=== PATIENT | male | born 1960 | race Caucasian/White ===

== ENCOUNTER 2022-12-24 13:33 | Inpatient (IN) ==
--- NOTE | 2022-12-24 13:44 | ED Triage Note ---
Date of Service December 24, 2022 History of Present Illness This patient was briefly evaluated while in triage. An abbreviated physical exam was performed. This patient is a 62-year-old Male who presents to the ED for evaluation of weakness of the patient's right fourth and fifth fingers. This began earlier th is morning around 10 AM. The patient was seen at [facility] and referred to the emergency department to have a CT scan done to make sure that he does not have a stroke. The patient was previously seen by [facility] orthopedics back last fall with x-rays of the wrist. Physical Exam CONSTITUTIONAL: Healthy and well nourished. Patient does not appear in any acute distress. HEENT: Pupils equal, round and reactive. MUSCULOSKELETAL: Examination shows a flexion of the right fourth and fifth fingers. The fingers are sensory intact. The patient has edema over the over the ulnar styloid and dorsal hand region. INTEGUMENTARY: No rash or other significant dermatologic conditions noted. HEMATOLOGIC: No ecchymosis or petechiae. PSYCHIATRIC: Positive affect. NEUROLOGIC: Cranial nerves II-XII grossly intact. No focal neurologic deficits noted. Right hand and fingers are sensory intact Initial orders for labs and / or imaging were placed and patient was placed in the waiting area until a bed is available. Please see further documentation for the full ED course. MDM / Impression Impression Impression: Right hand weakness, Elevated troponin, Acute electrocardiogram changes, Hypomagnesemia
--- NOTE | 2022-12-24 13:55 | Emergency Department Note ---
ED Provider Note History of Present Illness Chief Complaint: Wrist Pain Stated Complaint: ct scan Time Seen by Provider: 12/24/22 13:50 This is a 62-year-old male with a history of diabetes, hypertension, high cholesterol, who was referred to the emergency department by orthopedic surgery to rule out a stroke secondary to developing weakness in his right fourth and fifth fingers earlier today at about 9 or 10:00 in the morning. Patient describes his deficit as his fourth and fifth fingers are drooped down. He is unable to fully straighten the fourth or fifth fingers. Fingers 1 2 and 3 are unaffected. He is able to flex the fingers fingers 4 and 5 to some extent but it also seems decreased. This is not accompanied by any numbness or tingling in his fingers. He has not had a headache, facial droop, confusion, slurred speec h, weakness anywhere else, or paresthesias or numbness anywhere else. He denies any chest pain, palpitations, or shortness of breath. He contacted his primary care provider who was able to secure an urgent orthopedic appointment through [employer] and he was seen by them today. They referred him to the emergency department to rule out a stroke. Patient states that he has been dealing with pain and swelling over the ulnar aspect of his wrist over the past 8 months. He was seen for this in the past, and it was felt that this may be gout, pseudogout, or arthritis. He has had intermittent pain and swelling in this region since. Within the past few days he notes a new lump adjacent to his ongoing swelling which he believes might be a ganglion cyst. The swelling slightly improved over the last 2 days but the cystic structure is still there. Patient has had ongoing pain in the wrist, but has not had any droop or neurologic deficits like he has today. When he woke up today, he did not have any weakness in the fingers. Past Med/Surg History Medical History (Updated 12/24/22 @ 20:12 by Manisha Dubose PA-C) Diabetes Gout HLD (hyperlipidemia) Hypertension Obesity (BMI 30-39.9) Surgical History (Updated 12/24/22 @ 20:11 by Manisha Dubose PA-C) Hx of colonoscopy Family History (Updated 12/24/22 @ 18:28 by Manisha Dubose PA-C) Other Heart disease Hypertension Stroke Social History Smoking Status: Never smoker Feels Safe at Home: Yes Physical Exam Vital Signs Vital Signs - 24 hr 12/24/22 13:39 12/24/22 17:03 12/24/22 17:31 Temperature 36.8 C Temperature Source Temporal Artery Scan Pulse Rate 91 H 61 Pulse Rate [Apical] 66 Respiratory Rate 18 16 Respiratory Effort / Characteristics Non-Labored Non-Labored Respiratory Depth Normal Normal Blood Pressure 143/85 H Blood Pressure [Right Arm] 130/76 Blood Pressure Mean 104 Blood Pressure Mean [Right Arm] 94 Blood Pressure Position Sitting Pulse Oximetry 94 96 Oxygen Delivery Method Room Air Room Air Sepsis Recent Fever Within 48 Hours No Sepsis New/Unexplained Change in Mental Status N/A Sepsis Action Taken by Nursing No Action Required 12/24/22 16:51 12/24/22 18:00 12/24/22 18:10 Temperature Temperature Source Pulse Rate 71 72 Pulse Rate [Apical] 64 Respiratory Rate 22 17 18 Respiratory Effort / Characteristics Non-Labored Spontaneous Respiratory Depth Normal Blood Pressure 144/80 H 133/86 Blood Pressure [Right Arm] 133/86 Blood Pressure Mean 101 101 Blood Pressure Mean [Right Arm] 101 Blood Pressure Position Pulse Oximetry 94 94 95 Oxygen Delivery Method Room Air Room Air Room Air Sepsis Recent Fever Within 48 Hours Sepsis New/Unexplained Change in Mental Status Sepsis Action Taken by Nursing CONSTITUTIONAL: Well developed, well nourished, in no acute distress. HEAD: Normocephalic, atraumatic. EYES: PERRL, conjunctivae normal, extraocular muscles intact. ENMT: External ears normal. Nose with normal external appearance, no congestion. Oral mucous membranes moist. Oropharynx normal. Tongue midline, no fasciculations. NECK: Full active range of motion. RESPIRATORY: Breathing unlabored and symmetric. Lungs clear to auscultation bilaterally. No wheeze, rales, or rhonchi. CARDIOVASCULAR: Regular rate and rhythm. No murmurs, rubs, or gallops. Radial pulses 2+ bilaterally. MUSCULOSKELETAL: Right upper extremity: Shoulder and elbow with full range of motion. Wrist extension is slightly limited. There is an obvious droop/weakness/flaccidness to the fifth and fourth fingers beginning at about the MCP joint. Patient able to slightly flex these fingers, but is unable to extend them. He has full range of motion in the thumb, index, and middle f ingers. All of these fingers are warm and well-perfused. Patient unable to fully supinate the wrist. Perform straight leg raises bilaterally. SKIN: Rigby, warm, dry. Capillary refill less than 2 seconds in all fingers NEUROLOGIC: Awake, alert, oriented. Cranial nerves II through XII intact. The re is obvious weakness in fingers 4 and 5 on the right hand. Coordination is intact. No sensory deficits in bilateral fingers to light touch. Patient reports slight subjective decreased sensation to sharp dull differentiation in right fourth and fifth fingers. No pronator drift. PSYCHIATRIC: Appropriate. Normal affect Course Administered Medications Discontinued Medications Aspirin (Aspirin Chew 324 Mg) 324 mg PO NOW STA Stop: 12/24/22 17:09 Last Admin: 12/24/22 17:14 Dose: 324 mg Documented By: CHIP Magnesium Sulfate/Dextrose (Magnesium Sulfate / D5w) 1 gm in 100 mls @ 100 mls/hr IV Q1H MK Stop: 12/24/22 18:41 Last Infusion: 12/24/22 19:14 Dose: 0 mls/hr Documented By: Admin: 12/24/22 18:09 Dose: 100 mls/hr Documented By: Infusion: 12/24/22 18:04 Dose: 0 mls/hr Documented By: Admin: 12/24/22 17:01 Dose: 100 mls/hr Documented By: MARGARITO Sodium Chloride (Nss) 500 mls @ 999 mls/hr IV .Q31M ONE Stop: 12/24/22 18:05 Last Infusion: 12/24/22 18:44 Dose: 0 mls/hr Documented By: Admin: 12/24/22 18:10 Dose: 999 mls/hr Documented By: MARGARITO Ioversol (Optiray 320 500ml) 111 ml IV ONCE ONE Stop: 12/24/22 16:14 Last Admin: 12/24/22 16:13 Dose: 111 ml Documented By: CARY Medical Decision Making Differential Diagnosis Peripheral nerve palsy, ganglion cyst, tendon laceration, gout, pseudogout, CVA, dissection, DC, pulmonary embolism, neuropathy, demyelinating disorder, cardiac arrhythmia, among other pathology Medical Records Attestation: I reviewed the patient's medical records. (Reviewed prior [facility] cardiology notes and prior [facility] ECGs. Stress echo 2020 unchanged from 2019. There is a diagnosis of a mildly enlarged ascending aorta, what was visualized on the CT of the neck was normal.) Laboratory Data 12/24/22 14:51 12/24/22 14:51 Lab Results 12/24/22 12/24/22 12/24/22 Range/Units 14:51 14:51 14:51 WBC 9.28 (4.8-10.8) K/ul RBC 4.71 (4.70-6.10) M/uL Hgb 14.3 (14.0-18.0) g/dl Hct 41.9 L (42.0-52.0) % MCV 89.0 (80.0-100.0) fL MCH 30.4 (25.0-34.0) pg MCHC 34.1 (32.0-36.0) g/dL RDW Std Deviation 43.5 (36.4-46.3) fL RDW Coeff of Yan[place] 13.3 (11.5-14.5) % Plt Count 201 (130-400) K/uL MPV 9.8 (9.4-12.4) fL Immature Gran % (Auto) 0.2 % Neut % (Auto) 43.9 % Lymph % (Auto) 21.9 % [place] % (Auto) 8.3 % Eos % (Auto) 25.2 % Baso % (Auto) 0.5 % Neut # (Auto) 4.07 (1.40-6.50) K/uL Lymph # (Auto) 2.03 (1.2-3.4) K/uL [place] # (Auto) 0.77 H (0.11-0.59) K/uL Eos # (Auto) 2.34 H (0-0.50) K/uL Baso # (Auto) 0.05 (0-0.2) K/uL Immature Gran # (Auto) 0.02 (0.01-0.20) K/uL PT 11.2 (9.0-12.0) Seconds INR 1.0 (0.9-1.1) APTT 29.5 (21.0-31.0) Seconds PTT Ratio 1.0 Sodium 139 (136-145) mmol/L Potassium 3.9 (3.5-5.1) mmol/L Chloride 102 (98-107) mmol/L Carbon Dioxide 28 (21-32) mmol/L Anion Gap 9 (3-11) BUN 16 (6-23) mg/dl Creatinine 0.90 (0.6-1.4) mg/dl Est Cr Clr Drug Dosing 109.6 ml/min Est GFR ( Amer) 104.2 ml/min Est GFR (Non-Af Amer) 89.9 ml/min BUN/Creatinine Ratio 17.8 (10-20) Glucose 155 H (70-99(Fasting)) mg/dl Calcium 9.4 (8.6-10.3) mg/dl Magnesium 1.5 L (1.7-2.4) mg/dl Total Bilirubin 0.6 (0.2-1.0) mg/dl AST 22 (13-39) U/L ALT 15 (7-52) U/L Alkaline Phosphatase 69 (34-104) U/L Troponin I High Sens 160.0 H* (0-20) pg/ml Total Protein 6.8 (6.0-8.3) gm/dl Albumin 4.2 (3.4-5.0) gm/dl Globulin 2.6 (2.5-4.0) gm/dl Albumin/Globulin Ratio 1.6 (0.9-2) SARS-CoV-2, RNA, NAAT (NEGATIVE) 12/24/22 12/24/22 Range/Units 16:52 17:16 WBC (4.8-10.8) K/ul RBC (4.70-6.10) M/uL Hgb (14.0-18.0) g/dl Hct (42.0-52.0) % MCV (80.0-100.0) fL MCH (25.0-34.0) pg MCHC (32.0-36.0) g/dL RDW Std Deviation (36.4-46.3) fL RDW Coeff of Yanique (11.5-14.5) % Plt Count (130-400) K/uL MPV (9.4-12.4) fL Immature Gran % (Auto) % Neut % (Auto) % Lymph % (Auto) % [place] % (Auto) % Eos % (Auto) % Baso % (Auto) % Neut # (Auto) (1.40-6.50) K/uL Lymph # (Auto) (1.2-3.4) K/uL [place] # (Auto) (0.11-0.59) K/uL Eos # (Auto) (0-0.50) K/uL Baso # (Auto) (0-0.2) K/uL Immature Gran # (Auto) (0.01-0.20) K/uL PT (9.0-12.0) Seconds INR (0.9-1.1) APTT (21.0-31.0) Seconds PTT Ratio Sodium (136-145) mmol/L Potassium (3.5-5.1) mmol/L Chloride (98-107) mmol/L Carbon Dioxide (21-32) mmol/L Anion Gap (3-11) BUN (6-23) mg/dl Creatinine (0.6-1.4) mg/dl Est Cr Clr Drug Dosing ml/min Est GFR ( Amer) ml/min Est GFR (Non-Af Amer) ml/min BUN/Creatinine Ratio (10-20) Glucose (70-99(Fasting)) mg/dl Calcium (8.6-10.3) mg/dl Magnesium (1.7-2.4) mg/dl Total Bilirubin (0.2-1.0) mg/dl AST (13-39) U/L ALT (7-52) U/L Alkaline Phosphatase (34-104) U/L Troponin I High Sens 180.7 H* (0-20) pg/ml Total Protein (6.0-8.3) gm/dl Albumin (3.4-5.0) gm/dl Globulin (2.5-4.0) gm/dl Albumin/Globulin Ratio (0.9-2) SARS-CoV-2, RNA, NAAT NEGATIVE (NEGATIVE) Imaging Data Radiologist's Impression: Head CTA 12/24/22 14:22 CT ANGIOGRAM OF THE BRAIN COMBO; CT ANGIOGRAM OF THE NECK CLINICAL HISTORY: Right upper extremity weakness. COMPARISON STUDY: No priors. TECHNIQUE: Unenhanced axial CT scan of the brain is performed. Subsequently, following the IV administration of 100 of Optiray 320, CT angiogram of the head and neck was performed from the aortic arch to the vertex. Images are reviewed in the axial, sagittal, and coronal planes. 3-D MIPS images are created and assessed. IV contrast was administered without complication. All measurements were calculated based on NASCET criteria. A dose lowering technique was utilized adhering to the principles of ALARA. CT DOSE: 1203.63 mGy.cm FINDINGS: Brain parenchyma: The brain parenchyma is normal in appearance. There is no hemorrhage, mass effect, or evidence of acute territorial ischemia by CT criteria. There is no evidence of enhancing mass lesion on the angiogram phase images. The ventricles, sulci, and cisterns are normal in configuration. Villalba- white matter differentiation is preserved. No extra-axial fluid collection is seen. Thoracic aorta: Visualized portions of the thoracic aorta are normal in caliber. The aortic arch demonstrates standard 3-vessel anatomy. Right carotid arterial system: The right common carotid artery is widely patent, as are the right internal and external carotid arteries. Left carotid arterial system: The left common carotid artery is widely patent, as is the left internal and external carotid arteries. Calcified plaque is noted in the carotid bulb. Vertebral arteries: The vertebral arteries are widely patent bilaterally and codominant. Subclavian arteries: Widely patent bilaterally. Intracranial vasculature: There is atherosclerotic calcification of the cavernous carotid and vertebral arteries. The internal carotid arteries are patent at the skull base, as are the anterior and middle cerebral arteries bi laterally. The vertebrobasilar system and posterior cerebral arteries are widely patent. The vertebral arteries are codominant. There is a large right posterior communicating artery. There is no aneurysm, high-grade stenosis, or focal vessel cut off seen throughout the intracranial circulation. Jugular veins: Patent bilaterally. Dural sinuses: Patent. Lung apices: Partially visualized upper lobe lung parenchyma appears clear. Soft tissues: The visualized pharyngeal soft tissues are normal in appearance noting angiographic phase technique. The oropharyngeal airway appears widely patent. The salivary and thyroid glands are normal in appearance. No cervical lymphadenopathy is seen. Skeletal structures: The calvarium appears intact. The cervical spine is maintained noting mild spondylosis. Orbits: The bony orbits are intact. Orbital contents are normal as visualized. Sinuses and mastoids: There is trace mucosal thickening within the left maxillary antrum. The remaining paranasal sinuses are clear. The mastoid air cells are well pneumatized. IMPRESSION: 1. There is no hemorrhage, mass effect, or evidence of acute territorial ischemia by CT criteria. 2. Unremarkable CT angiogram of the brain. 3. Unremarkable CT angiogram of the neck. ACT 112: Negative or not required by law. Electronically signed by: Jesse Campbell M.D. 12/24/2022 4:37 PM Neck CTA 12/24/22 14:22 CT ANGIOGRAM OF THE BRAIN COMBO; CT ANGIOGRAM OF THE NECK CLINICAL HISTORY: Right upper extremity weakness. COMPARISON STUDY: No priors. TECHNIQUE: Unenhanced axial CT scan of the brain is performed. Subsequently, following the IV administration of 100 of Optiray 320, CT angiogram of the head and neck was performed from the aortic arch to the vertex. Images are reviewed in the axial, sagittal, and coronal planes. 3-D MIPS images are created and assessed. IV contrast was administered without complication. All measurements were calculated based on NASCET criteria. A dose lowering technique was utilized adhering to the principles of ALARA. CT DOSE: 1203.63 mGy.cm FINDINGS: Brain parenchyma: The brain parenchyma is normal in appearance. There is no hemorrhage, mass effect, or evidence of acute territorial ischemia by CT criteria. There is no evidence of enhancing mass lesion on the angiogram phase images. The ventricles, sulci, and cisterns are normal in configuration. Villalba- white matter differentiation is preserved. No extra-axial fluid collection is seen. Thoracic aorta: Visualized portions of the thoracic aorta are normal in caliber. The aortic arch demonstrates standard 3-vessel anatomy. Right carotid arterial system: The right common carotid artery is widely patent, as are the right internal and external carotid arteries. Left carotid arterial system: The left common carotid artery is widely patent, as is the left internal and external carotid arteries. Calcified plaque is noted in the carotid bulb. Vertebral arteries: The vertebral arteries are widely patent bilaterally and codominant. Subclavian arteries: Widely patent bilaterally. Intracranial vasculature: There is atherosclerotic calcification of the ca vernous carotid and vertebral arteries. The internal carotid arteries are patent at the skull base, as are the anterior and middle cerebral arteries bilaterally. The vertebrobasilar system and posterior cerebral arteries are widely patent. The vertebral arteries are codominant. There is a large right posterior communicating artery. There is no aneurysm, high-grade stenosis, or focal vessel cut off seen throughout the intracranial circulation. Jugular veins: Patent bilaterally. Dural sinuses: Patent. Lung apices: Partially visualized upper lobe lung parenchyma appears clear. Soft tissues: The visualized pharyngeal soft tissues are normal in appearance noting angiographic phase technique. The oropharyngeal airway appears widely patent. The salivary and thyroid glands are normal in appearance. No cervical lymphadenopathy is seen. Skeletal structures: The calvarium appears intact. The cervical spine is maintained noting mild spondylosis. Orbits: The bony orbits are intact. Orbital contents are normal as visualized. Sinuses and mastoids: There is trace mucosal thickening within the left maxillary antrum. The remaining paranasal sinuses are clear. The mastoid air cells are well pneumatized. IMPRESSION: 1. There is no hemorrhage, mass effect, or evidence of acute territorial ischemia by CT criteria. 2. Unremarkable CT angiogram of the brain. 3. Unremarkable CT angiogram of the neck. ACT 112: Negative or not required by law. Electronically signed by: Jesse Campbell M.D. 12/24/2022 4:37 PM ECG Data Attestation: I personally reviewed and interpreted this ECG as follows: Additional Comments: EKG #1: Sinus rhythm in lead I with significant artifact in remaining leads. TX interval prolonged at 206. EKG #2: Sinus rhythm with a rate of 64. TX interval prolonged at 246. Left axis deviation. Question Q waves in the inferior leads. No acute ST elevation. Compared to prior ECG from [facility] in August 05, 2022, there are slight ups trokes in the inferior leads so Q waves may be new. No additional significant changes were identified. MDM Narrative [id number] 62-year-old male was referred to the emergency department by his orthopedic surgeon to rule out a stroke secondary to weakness in his right fourth and fifth fingers that occurred at about 9 or 10:00 this morning. He has been dealing with ongoing swelling and pain in the ulnar aspect of his right wrist over the past 8 months, and recently developed what he believes to be a ganglion cyst in this vicinity as well. On exam, he does have flaccidness to the fourth and fifth digits at the MCP joint, and is unable to fully extend these fingers. He has slight ability to flex the fingers. Minimal subjective decreased sensation to sharp differentiation. Remainder of examination is unremarkable including full ne urologic exam. Case discussed with ED attending Dr. Franco. This does not warrant a stroke alert, but we we will work the patient up for a CVA though this does appear to be more of a peripheral nerve palsy which I suspect to be related to patient's ongoing swelling and tenderness about the ulnar wrist. Patient declined x-rays of the wrist stating that he would prefer to have this done by orthopedics when he follows up with them. Labs were obtained showing a positive troponin at 160. No leukocytosis or anemia. Coags are normal. Magnesium slightly low at 1.5, repleted IV, glucose slightly elevated 155, known diabetic. No transaminitis. Renal function is normal. An order was placed for continuous cardiac monitoring demonstrating a sinus rhythm with a heart rate in the 80s. EKG: Initial was nearly unreadable although does appear to be a sinus rhythm. Repeat ECG demonstrates no acute ST elevation, though there is a persistent prolonged TX interval at 246. Questionable Q waves in the inferior leads. Compared to prior ECG, this is slightly more prominent though not significantly changed. CTA head and neck is negative for any acute process. Reevaluated the patient at bedside. Confirmed he was not experiencing any chest pain or shortness of breath, and has not experienced any of this over the past few days. No prior troponins were identified in the patient's records from [facility]. Case rediscussed with ED attending Dr. Franco and we will treat the patient with 324 mg aspirin. Heart score 6 points. We were inclined to obtain a CTA of the chest to evaluate for PE however when I discussed the case with GANESH Castellanos with [facility] hospitalist group at time of admission, she did not feel that this test was indicated at this time, so we will defer to their inpatient management. Patient did not have any acute neurologic changes, remained hemodynamically stable. Patient will be admitted for serial troponins, further cardiac work-up, and further evaluation related to the hand weakness. At time of admission, his repeat troponin had increased to 180.7. Melani ANDERSEN notified and aware. Impression Right hand weakness, Elevated troponin, Acute electrocardiogram changes, Hypomagnesemia Discharge Plan Visit Data Chief Complaint: Wrist Pain Stated Complaint: ct scan ED Provider: Burton Franco ED Midlevel Provider: Wade Ugarte Discharge Problem: Right hand weakness, Elevated troponin, Acute electrocardiogram changes, Hypomagnesemia Patient Disposition: Admitted As Inpatient Forms Stand Alone Forms: My [facility] Referrals Referrals: PCP,NO [Physician] - Addendum December 24, 2022 20:45 I was consulted by the Advanced Practice Provider.I performed a substantive portion of the visit.This includes aspects of the HPI, MDM, diagnostic interpretations, and disposition/plan. I discussed the case with the JANETT and agree with the findings and plan as documented in JANETT Torito's note.
[2022-12-24 15:39] LABS: Basophils # (auto) 0.05 K/uL (0-0.2); Basophils % (auto) 0.5 %; Eosinophils # (auto) 2.34 K/uL (0-0.50); Eosinophils % (auto) 25.2 %; Hematocrit (blood only) 41.9 % (42.0-52.0); Hemoglobin 14.3 g/dl (14.0-18.0); Immature Granulocytes # (auto) 0.02 K/uL (0.01-0.20); Immature Granulocytes % (auto) 0.2 %; Lymphocytes # (auto) 2.03 K/uL (1.2-3.4); Lymphocytes % (auto) 21.9 %; Mean Corpuscular Hemoglobin 30.4 pg (25.0-34.0); Mean Corpuscular Hgb Conc 34.1 g/dL (32.0-36.0); Mean Platelet Volume 9.8 fL (9.4-12.4); Monocytes # (auto) 0.77 K/uL (0.11-0.59); Monocytes % (auto) 8.3 %; Neutrophils # (auto) 4.07 K/uL (1.40-6.50); Neutrophils % (auto) 43.9 %; Platelet Count 201 K/uL (130-400); RDW Coefficient of Variation 13.3 % (11.5-14.5); RDW Standard Deviation 43.5 fL (36.4-46.3); Red Blood Count 4.71 M/uL (4.70-6.10); White Blood Count 9.28 K/ul (4.8-10.8)
[2022-12-24 15:53] LABS: Albumin Globulin Ratio 1.6 (0.9-2); Albumin Level 4.2 gm/dl (3.4-5.0); BUN Creatinine Ratio 17.8 (10-20); Bilirubin,Total 0.6 mg/dl (0.2-1.0); Calcium 9.4 mg/dl (8.6-10.3); Creatinine Clr Calc Pharmacy 109.6 ml/min; Est GFR (African American) 104.2 ml/min; Est GFR (Non-African American) 89.9 ml/min; Globulin 2.6 gm/dl (2.5-4.0); Magnesium 1.5 mg/dl (1.7-2.4); Potassium 3.9 mmol/L (3.5-5.1); Total Protein 6.8 gm/dl (6.0-8.3)
[2022-12-24 16:04] LABS: Partial Thromboplastin Time 29.5 Seconds (21.0-31.0); Prothrombin Time 11.2 Seconds (9.0-12.0)
[2022-12-24] MEDS ORDERED: OPTIRAY 320 500ml IV ONE (16:13)
--- NOTE | 2022-12-24 16:39 | CT Scan Report ---
CT ANGIOGRAM OF THE BRAIN COMBO; CT ANGIOGRAM OF THE NECK CLINICAL HISTORY: Right upper extremity weakness. COMPARISON STUDY: No priors. TECHNIQUE: Unenhanced axial CT scan of the brain is performed. Subsequently, following the IV adminis tration of 100 of Optiray 320, CT angiogram of the head and neck was performed from the aortic arch t o the vertex. Images are reviewed in the axial, sagittal, and coronal planes. 3-D MIPS images are cre ated and assessed. IV contrast was administered without complication. All measurements were calculate d based on NASCET criteria. A dose lowering technique was utilized adhering to the principles of ALA RA. CT DOSE: 1203.63 mGy.cm FINDINGS: Brain parenchyma: The brain parenchyma is normal in appearance. There is no hemorrhage, mass effect, or evidence of acute territorial ischemia by CT criteria. There is no evidence of enhancing mass lesi on on the angiogram phase images. The ventricles, sulci, and cisterns are normal in configuration. Gr ay-white matter differentiation is preserved. No extra-axial fluid collection is seen. Thoracic aorta: Visualized portions of the thoracic aorta are normal in caliber. The aortic arch demo nstrates standard 3-vessel anatomy. Right carotid arterial system: The right common carotid artery is widely patent, as are the right int ernal and external carotid arteries. Left carotid arterial system: The left common carotid artery is widely patent, as is the left interna l and external carotid arteries. Calcified plaque is noted in the carotid bulb. Vertebral arteries: The vertebral arteries are widely patent bilaterally and codominant. Subclavian arteries: Widely patent bilaterally. Intracranial vasculature: There is atherosclerotic calcification of the cavernous carotid and vertebr al arteries. The internal carotid arteries are patent at the skull base, as are the anterior and midd le cerebral arteries bilaterally. The vertebrobasilar system and posterior cerebral arteries are wide ly patent. The vertebral arteries are codominant. There is a large right posterior communicating briana ry. There is no aneurysm, high-grade stenosis, or focal vessel cut off seen throughout the intracrani al circulation. Jugular veins: Patent bilaterally. Dural sinuses: Patent. Lung apices: Partially visualized upper lobe lung parenchyma appears clear. Soft tissues: The visualized pharyngeal soft tissues are normal in appearance noting angiographic pha se technique. The oropharyngeal airway appears widely patent. The salivary and thyroid glands are nor mal in appearance. No cervical lymphadenopathy is seen. Skeletal structures: The calvarium appears intact. The cervical spine is maintained noting mild spond ylosis. Orbits: The bony orbits are intact. Orbital contents are normal as visualized. Sinuses and mastoids: There is trace mucosal thickening within the left maxillary antrum. The remaini ng paranasal sinuses are clear. The mastoid air cells are well pneumatized. IMPRESSION: 1. There is no hemorrhage, mass effect, or evidence of acute territorial ischemia by CT criteria. 2. Unremarkable CT angiogram of the brain. 3. Unremarkable CT angiogram of the neck. ACT 112: Negative or not required by law. Electronically signed by: Jesse Campbell M.D. 12/24/2022 4:37 PM
[2022-12-24] MEDS: MAGNESIUM SULFATE / D5W 1 GM/100 ML BAG IV SCH ×2 (17:01→18:09)
[2022-12-24] MEDS ORDERED: ASPIRIN CHEW 324 MG PO STA (17:08)
[2022-12-24] MEDS ORDERED: SODIUM CHLORIDE 0.9% 500 ML IV ONE (17:35)
--- NOTE | 2022-12-24 17:39 | History & Physical Report ---
Date of Service December 24, 2022 Assessment & Plan (1) Ganglion, right wrist: Plan: - Admit to med tele - Ortho consult potentially although this likely can be continued as part of an outpatient work-up - Pt was sent to the hospital for an acute CVA work-up as per HPI - CTA of the head and neck were negative - MRI brain for acute inability to extend the 4th and 5th fingers of the right hand, numbness, risk factors-we will obtain a MRI of the C-spine as well -Consult neurology (2) Elevated troponin: Plan: - Check 2D echo - last stress echo 04/05/21 reviewed and had no signs of ischemia, resting revealed normal E, systolic function, and mildly dilated right ventricle without pulm htn, mildy enlarged aschednign aorta measuring 4.4 cm. - Troponin 160 increased to 180, trend - No chest pain - EKG reviewed- appears sinus with PVCs , only slight change compared to previous EKG - Will ask cardiology consultation as he follows with Dr. Arnold as an outpatient (3) HLD (hyperlipidemia): Plan: - Cont rosuvatain (4) Hypertension: Plan: - Cont asa 81 mg daily, lisinopril (5) Diabetes: Plan: - Last A1C was 6.8 on 09/10/22 - recheck with am labs - Finishing invokana, and switching to jardiance due to insurance reasons, on home metformin- will hold for now - ISS with accuchecks achs - (6) Hypomagnesemia: Plan: - 1.5 upon admission - repleted, trend with a.m. labs (7) Obesity (BMI 30-39.9): Plan: BMI of 31.2 -Diet and exercise to be encouraged throughout hospital stay DVT PPx: - teds, scds CODE: Full code Dispo: From home, likely to remain in the hospital x 1-2 days A total of 77 minutes were spent with greater than 50% of that time face to face with the patient, personally reviewing all current laboratories, imaging studies, past medication reconciliation, outpatient chart review, and discussion with specialists to collaborate care for the patient with attending. Please see attending documentation for corrections and/or additions. History of Present Illness Chief Complaint: Right wrist pain, worsening ability to move 4th and 5th finger Primary Care Provider: Juan Guzman MD This is a 62-year-old male with PMHx of HTN, HLD, gout, DM type II, benign neoplasm of the colon, obesity, and history of right wrist pain with arthritis. Patient has previously been seen by Dr. Michi Winter for right wrist pain, and already takes allopurinol and indomethacin on an as-needed basis for gout flares. In the beginning of November he noticed a bump on the dorsum of his wrist and was diagnosed as a ganglion cyst by his PCP. Yesterday on 12/23 he acutely lost the ability to extend his fourth and fifth fingers on the right hand. Denies any known trauma. Denies any significant pain. He admits to having tingling on the dorsum of the wrist, but no numbness in the fingers. Neurology recommended waiting 3 to 4 weeks for an EMG as today could potentially be normal despite abnormal exam. Due to acute concern for symptoms with inability to extend fingers, he was sent from Dr. Patria Quiroz at sports medicine/orthopedic office to the hospital for CVA rule out for CT of the head. Pt reports pain in his right hand has gotten so bad that he is writing his left, as well as is learning to use utensils with the left hand. Pt reports prior to today, pt had no issues moving his right wrist or his fingers. He has had intermittent swelling which has caused pain, but today there is no swelling. He basically woke up like this, and last time known well was last night prior to going to [place]. While here in the ER, patient was found to have an elevated troponin of 160--> 180 on recheck. Patient denies any cardiac symptoms including chest pain, shortness of breath, flutter, palpitation, lightheadedness or dizziness. Family Hx: reports multiple family members with cardiac disease, [place] Past Med/Surg History Medical History (Updated 12/24/22 @ 20:12 by Manisha Dubose PA-C) Diabetes Gout HLD (hyperlipidemia) Hypertension Obesity (BMI 30-39.9) Surgical History (Updated 12/24/22 @ 20:11 by Manisha Dubose PA-C) Hx of colonoscopy Family History (Updated 12/24/22 @ 18:28 by Manisha Dubose PA-C) Other Heart disease Hypertension Stroke Social History Smoking Status: Never smoker Feels Safe at Home: Yes Review of Systems Review of Systems: Constitutional: No fever, sweats or chills Eyes: No diplopia, no worsening or blurred vision ENT: normal hearing, no trouble swallowing Respiratory: No cough, sputum, dyspnea at rest or on exertion Cardiovascular: No chest pain, tightness or palpitations Abdomen: No pain, nausea, vomiting, diarrhea or constipation Musculoskeletal: As per HPI, otherwise No joint pain, calf pain, swelling Neurologic: R hand weakness, No weakness, numbness/tingling, or balance problems Psychiatric: No anxiety or depression Skin: No rash or itch Physical Exam Physical Exam: General: awake, alert, no apparent distress, obese with BMI of 31.2 Head: Normocephalic, atraumatic ENT: PERRL, EOMI, no pharyngeal exudate, mucous membranes moist Chest: Clear to auscultation, on room air, no adventitious breath sounds Cardiac: Regular rate and rhythm, no murmur, no JVD, normal peripheral pulses, good capillary refill Abdominal: NABS x 4 quadrants, soft, nondistended, nontender to palpation, no rebound or guarding Extremities: Normal inspection, no peripheral edema or erythema, calfs nontender to palpation Psych: Normal mood and affect Neuro: AAO x 3, strength intact bilaterally and rated 5/5, pt has difficulty pronating and internally rotating his right arm, cannot extend right wrist or extend or flex 4th or 5th finger on the right, otherwise no motor deficits, speech is clear, no peripheral sensory deficits Results & Data Results & Data Vital Signs (Past 12 Hours) Vital Signs Temp Pulse Pulse Resp BP BP Pulse Ox 12/24/22 17:03 66 16 130/76 96 12/24/22 13:39 36.8 C 91 H 18 143/85 H 94 O2 Del Method 12/24/22 17:03 Room Air 12/24/22 13:39 Room Air Laboratory Results 12/24/22 12/24/22 12/24/22 17:16 16:52 14:51 WBC RBC Hgb Hct MCV MCH MCHC RDW Std Deviation RDW Coeff of [place] Plt Count MPV Immature Gran % (Auto) Neut % (Auto) Lymph % (Auto) [place] % (Auto) Eos % (Auto) Baso % (Auto) Neut # (Auto) Lymph # (Auto) [place] # (Auto) Eos # (Auto) Baso # (Auto) Immature Gran # (Auto) PT 11.2 INR 1.0 APTT 29.5 PTT Ratio 1.0 Sodium Potassium Chloride Carbon Dioxide Anion Gap BUN Creatinine Est Cr Clr Drug Dosing Est GFR ( Amer) Est GFR (Non-Af Amer) BUN/Creatinine Ratio Glucose Calcium Magnesium Total Bilirubin AST ALT Alkaline Phosphatase Troponin I High Sens 180.7 H* Total Protein Albumin Globulin Albumin/Globulin Ratio SARS-CoV-2, RNA, NAAT NEGATIVE 12/24/22 12/24/22 14:51 14:51 WBC 9.28 RBC 4.71 Hgb 14.3 Hct 41.9 L MCV 89.0 MCH 30.4 MCHC 34.1 RDW Std Deviation 43.5 RDW Coeff of [place] 13.3 Plt Count 201 MPV 9.8 Immature Gran % (Auto) 0.2 Neut % (Auto) 43.9 Lymph % (Auto) 21.9 [place] % (Auto) 8.3 Eos % (Auto) 25.2 Baso % (Auto) 0.5 Neut # (Auto) 4.07 Lymph # (Auto) 2.03 [place] # (Auto) 0.77 H Eos # (Auto) 2.34 H Baso # (Auto) 0.05 Immature Gran # (Auto) 0.02 PT INR APTT PTT Ratio Sodium 139 Potassium 3.9 Chloride 102 Carbon Dioxide 28 Anion Gap 9 BUN 16 Creatinine 0.90 Est Cr Clr Drug Dosing 109.6 Est GFR ( Amer) 104.2 Est GFR (Non-Af Amer) 89.9 BUN/Creatinine Ratio 17.8 Glucose 155 H Calcium 9.4 Magnesium 1.5 L Total Bilirubin 0.6 AST 22 ALT 15 Alkaline Phosphatase 69 Troponin I High Sens 160.0 H* Total Protein 6.8 Albumin 4.2 Globulin 2.6 Albumin/Globulin Ratio 1.6 SARS-CoV-2, RNA, NAAT Code Status & VTE Plan Code Status Full code-discussed with the patient at bedside Supervising Physician Co-Signing Physician Notes Pt is a 62 y/o M with hx of DMII, HLD, Gout, GERD, hypothyroidism, HTn, Ascending aortic dilation admitted for acute onset of Claw hand. Pt has been having R wrist swelling for awhile and then developed ganglion cyst on the R hand and today developed claw hand. Denied any slur speech, vision problems, other extremity weakness. A/P: NAD, well developed Lungs: CTA, no wheezing or crackles Cardiac: normal S1/S2, no murmur Abd: ND, soft, NT MSK: R claw hand with unable to supinate and extend the wrist, no elbow swelling, intake stretch at the shoulders and elbow Neuro: CN II-XII intact, normal sensation, EOMI, PERRLA Psych: AAOx3, normal affect A/p: Acute R hand neurological symptoms: -CTA head and neck: no stenosis -pt has symptoms of Radial and ulnar nerve palsy -no sign of any acute injury -will get MRI brain and C spine -Neurology consultation -not suspecting acute CVA at this time -outpt ortho follow up for ganglion cyst Elevated Troponin: -No acute chest pain -EKG: lot of artifact --- repeat EKG pending -trend trop -admit to tele -echo and cardiology consult -EKG am Other chronic conditions: Plan as above Agree with A/P by Manisha Dubose PA-C
--- NOTE | 2022-12-24 20:57 | Electrocardiogram Report ---
Test Reason : Blood Pressure : / mmHG Vent. Rate : 090 BPM Atrial Rate : 077 BPM P-R Int : 206 ms QRS Dur : 082 ms QT Int : 354 ms P-R-T Axes : 018 -53 062 degrees QTc Int : 433 ms Poor data quality, interpretation may be adversely affected Sinus rhythm Cannot interpret due to artifact No previous ECGs available Confirmed by Edil Williamson ([id number]) on 12/24/2022 8:56:57 PM Referred By: Confirmed By:Edil Williamson
--- NOTE | 2022-12-24 21:04 | Electrocardiogram Report ---
Test Reason : Blood Pressure : / mmHG Vent. Rate : 064 BPM Atrial Rate : 064 BPM P-R Int : 250 ms QRS Dur : 090 ms QT Int : 408 ms P-R-T Axes : 031 -48 059 degrees QTc Int : 420 ms Poor data quality, interpretation may be adversely affected Sinus rhythm with 1st degree A-V block Inferior infarct (cited on or before 24-DEC-2022) Abnormal ECG When compared with ECG of 24-DEC-2022 14:29, (unconfirmed) UT interval has increased Confirmed by Edil Williamson ([id number]) on 12/24/2022 9:04:39 PM Referred By: REFERRED SELF Confirmed By:Edil Williamson
[2022-12-24] MEDS ORDERED: CARBOHYDRATES FOR HYPOGLYCEMIA PO PRN (21:35)
[2022-12-24] MEDS ORDERED: GLUCAGON FOR INJ 1 MG VIAL SQ PRN (21:35)
[2022-12-24] MEDS ORDERED: ONDANSETRON INJ 2 MG/ML 2 ML VIAL IV PRN (21:35)
[2022-12-24] MEDS ORDERED: DEXTROSE 50% 50 ML SYRINGE IV PRN (21:35)
[2022-12-24] MEDS ORDERED: GLUCOSE 10 TAB/TUBE PO PRN (21:35)
[2022-12-24] MEDS ORDERED: GLUCOSE 40% GEL 15 GM TUBE PO PRN (21:35)
[2022-12-24] MEDS ORDERED: ACETAMINOPHEN 325 MG TAB PO PRN (21:35)
[2022-12-24] MEDS ORDERED: LORazepam 2 MG/1 ML VIAL IV STA (21:59)
[2022-12-24] MEDS ORDERED: LORazepam 2 MG/1 ML VIAL IV PRN (21:59)
[2022-12-24] MEDS: INSULIN ASPART PER UNIT CHARGE SC SCH (22:26)
--- NOTE | 2022-12-24 23:41 | Magnetic Resonance Report ---
Exam(s): MRI HEAD Without Contrast EXAM: MR Head Without Intravenous Contrast CLINICAL HISTORY: Reason for exam: R hand weakness, 4-5th finger inability to move. TECHNIQUE: Magnetic resonance images of the head/brain without intravenous contrast in multiple planes. COMPARISON: No relevant prior studies available. FINDINGS: Brain: Unremarkable. No mass. No hemorrhage. No acute infarct. Ventricles: Unremarkable. No ventriculomegaly. Bones/joints: Unremarkable. Sinuses: Unremarkable as visualized. No acute sinusitis. Mastoid air cells: Unremarkable as visualized. No mastoid effusion. Orbits: Unremarkable as visualized. IMPRESSION: Normal head/brain MRI. Electronically signed by: Erick Lucio MD 12/24/22 23:40 PM
--- NOTE | 2022-12-25 00:07 | Magnetic Resonance Report ---
Exam(s): MRI C SPINE EXAM: MR Cervical Spine Without Intravenous Contrast CLINICAL HISTORY: Reason for exam: Eval right wrist neuropathy. TECHNIQUE: Magnetic resonance images of the cervical spine without intravenous contrast in multiple planes. COMPARISON: No relevant prior studies available. FINDINGS: No fracture. Hemangioma within the T1 vertebral body. Minimal retrolisthesis at C3-4, C4-5, and C5-6. Multilevel disc desiccation with uncovertebral and facet hypertrophy. Cord signal is normal. No epidural collection. Paraspinous soft tissues are unremarkable. C2-C3: No spinal canal or foraminal stenosis. C3-C4: Trace diffuse disc bulge and facet arthropathy. Minimal effacement of the ventral cord. Mild foraminal stenosis on the left. No significant stenosis on the right. C4-C5: Diffuse disc bulge. Facet arthropathy. Minimal canal stenosis. Moderate bilateral foraminal stenosis. C5-C6: Diffuse disc bulge with uncovertebral and facet hypertrophy. Mild canal stenosis. Moderate bilateral foraminal stenosis. C6-C7: Uncovertebral and facet hypertrophy. No canal stenosis. Mild foraminal stenosis on the left. No stenosis on the right. C7-T1: No spinal canal or foraminal stenosis. IMPRESSION: Degenerative spondylosis as described. Electronically signed by: Erick Lucio MD 12/25/22 00:06 AM
[2022-12-25 04:00] LABS: Albumin Globulin Ratio 1.7 (0.9-2); Albumin Level 3.8 gm/dl (3.4-5.0); BUN Creatinine Ratio 17.9 (10-20); Bilirubin,Total 0.6 mg/dl (0.2-1.0); Calcium 8.8 mg/dl (8.6-10.3); Chol HDL Ratio 2.8 (0-5); Creatinine Clr Calc Pharmacy 128.4 ml/min; Est GFR (African American) 110.6 ml/min; Est GFR (Non-African American) 95.4 ml/min; Globulin 2.2 gm/dl (2.5-4.0); Magnesium 1.8 mg/dl (1.7-2.4); Potassium 4.1 mmol/L (3.5-5.1)
[2022-12-25] MEDS ORDERED: LEVOTHYROXINE SODIUM 50 MCG TABLET PO SCH (07:45)
[2022-12-25 08:00] LABS: Estimated Average Glucose 148 mg/dl; Hemoglobin A1C 6.8 % (4.5-5.6)
--- NOTE | 2022-12-25 08:18 | Cardiology Consultation ---
Date of Consultation December 25, 2022 Assessment & Plan (1) Elevated troponin: (2) Hypomagnesemia: (3) Hypertension: (4) Right hand weakness: Plan Patient admitted for right hand weakness. No evidence of acute CVA by head CT or Brain MRI. Neuro and ortho following. incidentally found to have slightly elevated troponin on admission. No cardiac symptoms to suggest ACS. No acute EKG changes. Echo revealing normal LV systolic function without wall motion abnormalities. Elevated troponin likely secondary hypertension on arrival. BP improved with home medications. Likely strong situational component. Recommend further work up per ortho and neurology. Given elevated troponin, would recommend proceeding with outpatient nuclear stress testing given cardiac risk factors. This was discussed with patient in detail and agreeable with plan. No further cardiac testing warranted at this time. Case discussed with Dr. Rich I spent a total of 50 minutes on the date of service in preparation, delivery, and documentation of the care provided to this patient, excluding any time spent in the performance of separately billed services. Kaya Holland PA-C Department of Cardiology, [facility] This chart was completed in part utilizing Speech Voice Recognition Software. Grammatical errors, random word insertions, prounoun errors, and incomplete sentences are an occasional consequence of this system due to software limitations, ambient noise, and hardware issues. Any formal questions or concerns about the content, text, or information contained within the body of this dictation should be directly addressed to the provider for clarification. Supervising Physician Co-Signing Physician Notes Supervising Physician Attestation: I agree with the physician family assistant's findings and plan as documented with the following additions. Unfortunately the patient was discharged before I had the opportunity to examine him in person. Agree with findings and plan as outlined by Kaya Holland PA-C. Norbert Rich, DO History of Present Illness Reason for Consultation: Elevated troponin Requesting Physician: Ms. Reyes Attending Physician: Wong Pineda MD History of Present Illness Patient is a 62-year-old male known to [facility] cardiology, Dr. Arnold. History includes: 1.Hypertension. 2. Type 2 diabetes mellitus. 3.Familial history of cardiovascular disease, aneurysm and stroke. 4.Borderline hypothyroidism. 5. Mild ascending aorta enlargement at 4.4 cm 6. History of PVC's Patient came to ER yesterday per advisement from [facility] after suddenly losing extension of right hand 4th and 5th fingers. He has been having issues with his right wrist for several months with swelling, treated for psudogout, now with ganglion cyst. Now also has difficulty with supination of the right arm. Came to ER for evaluation and r/o CVA. Head CT and Brain MRI were unremarkable. He was incidentally found to have an mildly elevated high- sensitivity troponin at 160. Troponin peaked at 180 and then reduced to 127 this morning. Patient was without chest pain or shortness of breath. EKG revealed normal sinus rhythm with old inferior infarct and left axis deviation, unchanged from prior outpatient EKGs. He was admitted for further evaluation of his right hand weakness and troponin elevation. He underwent echocardiogram which revealed preserved LV systolic function without significant valvular heart disease. At time of consult, patient feeling well. Continues to have passive flexion of the right fourth and fifth fingers. Capable of manual extension. No pain. Not able to supinate his right wrist. He reports numbness of his right hand as well. He denies cardiac complaints. No chest pain or shortness of breath. No palpitations. Blood pressure initially elevated but trending down with home therapies. No orthopnea, PND, lower extremity edema. No headache or vision changes. Allergies Allergy/AdvReac Type Severity Reaction Status Date / Time poison rip extract Allergy Blister Verified 12/24/22 22:10 Home Medications Medication Instructions Recorded Confirmed Type allopurinol 300 mg tablet 300 mg PO DAILY 12/24/22 12/24/22 History aspirin 81 mg chewable tablet 81 mg PO DAILY 12/24/22 12/24/22 History empagliflozin 25 mg tablet 25 mg PO DAILY 12/24/22 12/24/22 History (Jardiance) levothyroxine 50 mcg tablet 50 mcg PO DAILY 12/24/22 12/24/22 History lisinopril 10 mg tablet 10 mg PO QAM 12/24/22 12/24/22 History metformin 500 mg tablet,extended 1,000 mg PO BID 12/24/22 12/24/22 History release 24 hr methylprednisolone 4 mg tablets in 4 mg PO UD 12/24/22 12/24/22 History a dose pack metoprolol succinate 25 mg 25 mg PO QAM 12/24/22 12/24/22 History tablet,extended release 24 hr omeprazole 20 mg capsule,delayed 20 mg PO DAILY 12/24/22 12/24/22 History release rosuvastatin 10 mg tablet 10 mg PO DAILY 12/24/22 12/24/22 History sitagliptin phosphate 100 mg tablet 100 mg PO DAILY 12/24/22 12/24/22 History Patient History Medical History (Updated 12/25/22 @ 10:37 by Mega Shine MD) Diabetes Gout HLD (hyperlipidemia) Hypertension Obesity (BMI 30-39.9) Surgical History (Updated 12/24/22 @ 20:11 by Manisha Dubose PA-C) Hx of colonoscopy Family History (Updated 12/24/22 @ 18:28 by Manisha Dubose PA-C) Other Heart disease Hypertension Stroke Social History Smoking Status: Never smoker Hx Alcohol Use: No Hx Substance Use: No Preferred Language: Estonian Communication Ability: Effective Sourcing Coordinator Required: No Beliefs That Will Affect Care: None Current Living Situation: Alone Feels Safe at Home: Yes Assistive Devices: Glasses Review of Systems Review of Systems: All systems reviewed & are unremarkable except as noted in HPI & below Physical Exam Constitutional: WD/WN, vitals as above well developed; no acute distress Neck: trachea midline, no thyromegaly Respiratory: normal respiratory effort, lungs clear to auscultation Cardiovascular: Rate/Rhythm: regular rate and regular rhythm Heart Sounds: normal S1 and normal S2; no murmur Vessels: no JVD Extremities: no edema Gastrointestinal (Abdomen): normal bowel sounds, soft, nontender, no hepatosplenomegaly Musculoskeletal: Extremities: + hand abnormality Right (flexion of the 4th and 5th digits, mild swelling of the right wrist ) Skin: no rashes, warm and dry Neurologic: PERRL, EOMI, accommodation nl, no face palsy, no dysarthria Results & Data Vital Signs (Past 12 Hours) Vital Signs Temp Pulse Pulse Pulse Resp BP BP 12/25/22 07:40 36.8 C 60 18 146/82 H 12/25/22 03:41 36.7 C 62 18 144/79 H 12/25/22 00:00 61 12/24/22 21:10 57 L 12/25/22 00:07 37.0 C 69 18 139/83 12/24/22 21:35 12/24/22 21:35 36.9 C 63 18 139/77 12/24/22 20:52 71 20 146/77 H Pulse Ox O2 Del Method 12/25/22 07:40 95 Room Air 12/25/22 03:41 94 Room Air 12/25/22 00:00 12/24/22 21:10 12/25/22 00:07 96 Room Air 12/24/22 21:35 Room Air 12/24/22 21:35 95 Room Air 12/24/22 20:52 96 Room Air Laboratory Results Current Inpatient Medications Acetaminophen (Acetaminophen 325 Mg Tab) 650 mg PO Q4H PRN PRN Reason: Moderate Pain (Scale 4, 5, 6) Stop: 01/23/23 21:34 Allopurinol (Allopurinol 300 Mg Tab) 300 mg PO DAILY MK Stop: 01/24/23 08:59 Aspirin (Aspirin 81 Mg Ectab) 81 mg PO DAILY MK Stop: 01/24/23 08:59 Dextrose (Dextrose 50% 50 Ml Syringe) 25 - 50 ml IV UD PRN; Protocol PRN Reason: Hypoglycemia Protocol Stop: 01/23/23 21:34 Empagliflozin (Empagliflozin 25 Mg Tab) 25 mg PO DAILY MK Stop: 01/24/23 08:59 Glucagon (Glucagon For Inj 1 Mg Vial) 1 mg SQ UD PRN; Protocol PRN Reason: Hypoglycemia Protocol Stop: 01/23/23 21:34 Glucose (Glucose 10 Tab/Tube) 4 - 8 tab PO UD PRN; Protocol PRN Reason: Hypoglycemia Treatment Stop: 01/23/23 21:34 Glucose (Glucose 40% Gel 15 Gm Tube) 15 - 30 gm PO UD PRN; Protocol PRN Reason: Hypoglycemia Protocol Stop: 01/23/23 21:34 Insulin Aspart (Insulin Aspart Per Unit Charge) 0 units SC ACHS [facility] Stop: 01/23/23 21:34 Last Admin: 12/24/22 22:26 Dose: Not Given Levothyroxine Sodium (Levothyroxine Sodium 50 Mcg Tablet) 50 mcg PO DAILYBB [facility] Stop: 01/24/23 07:44 Lisinopril (Lisinopril 10 Mg Tab) 10 mg PO QAM [facility] Stop: 01/24/23 08:59 Lorazepam (Lorazepam 2 Mg/1 Ml Vial) 0.5 mg IV Q6H PRN PRN Reason: Anxiety Stop: 01/23/23 21:58 Metoprolol Succinate (Metoprolol Succ 25mg Ext Rel Tab) 25 mg PO QAM [facility] Stop: 01/24/23 08:59 Miscellaneous (Carbohydrates For Hypoglycemia ) 15 - 30 gm PO UD PRN PRN Reason: Hypoglycemia Protocol Stop: 01/23/23 21:34 Ondansetron HCl (Ondansetron Inj 2 Mg/Ml 2 Ml Vial) 4 mg IV Q4H PRN PRN Reason: Nausea And Vomiting Stop: 01/23/23 21:34 Pantoprazole Sodium (Pantoprazole 40 Mg Tab) 40 mg PO DAILY [facility] Stop: 01/24/23 08:59 Rosuvastatin Calcium (Rosuvastatin Calcium 10 Mg Tab) 10 mg PO DAILY [facility] Stop: 01/24/23 08:59 Diagnostic Findings Telemetry reviewed: NSR in the 50-60s. No concerning arrhythmias EKG on admission: NSR with LAD and possible old inferior infarct, no acute changes Repeat EKG: NSR with LAD and old inferior infarct Echocardiogram completed 12/24/22 No regional wall motion abnormalities. Normal LV systolic function with ejection fraction 55 to 60%. Grade 1 diastolic dysfunction. No significant valvular heart disease. Head CTA 12/24/22 14:22 CT ANGIOGRAM OF THE BRAIN COMBO; CT ANGIOGRAM OF THE NECK CLINICAL HISTORY: Right upper extremity weakness. COMPARISON STUDY: No priors. TECHNIQUE: Unenhanced axial CT scan of the brain is performed. Subsequently, following the IV administration of 100 of Optiray 320, CT angiogram of the head and neck was performed from the aortic arch to the vertex. Images are reviewed in the axial, sagittal, and coronal planes. 3-D MIPS images are created and assessed. IV contrast was administered without complication. All measurements were calculated based on NASCET criteria. A dose lowering technique was utilized adhering to the principles of ALARA. CT DOSE: 1203.63 mGy.cm FINDINGS: Brain parenchyma: The brain parenchyma is normal in appearance. There is no hemorrhage, mass effect, or evidence of acute territorial ischemia by CT criteria. There is no evidence of enhancing mass lesion on the angiogram phase images. The ventricles, sulci, and cisterns are normal in configuration. Villalba- white matter differentiation is preserved. No extra-axial fluid collection is seen. Thoracic aorta: Visualized portions of the thoracic aorta are normal in caliber. The aortic arch demonstrates standard 3-vessel anatomy. Right carotid arterial system: The right common carotid artery is widely patent, as are the right internal and external carotid arteries. Left carotid arterial system: The left common carotid artery is widely patent, as is the left internal and external carotid arteries. Calcified plaque is noted in the carotid bulb. Vertebral arteries: The vertebral arteries are widely patent bilaterally and codominant. Subclavian arteries: Widely patent bilaterally. Intracranial vasculature: There is atherosclerotic calcification of the cavernous carotid and vertebral arteries. The internal carotid arteries are patent at the skull base, as are the anterior and middle cerebral arteries bilaterally. The vertebrobasilar system and posterior cerebral arteries are widely patent. The vertebral arteries are codominant. There is a large right posterior communicating artery. There is no aneurysm, high-grade stenosis, or focal vessel cut off seen throughout the intracranial circulation. Jugular veins: Patent bilaterally. Dural sinuses: Patent. Lung apices: Partially visualized upper lobe lung parenchyma appears clear. Soft tissues: The visualized pharyngeal soft tissues are normal in appearance noting angiographic phase technique. The oropharyngeal airway appears widely patent. The salivary and thyroid glands are normal in appearance. No cervical lymphadenopathy is seen. Skeletal structures: The calvarium appears intact. The cervical spine is maintained noting mild spondylosis. Orbits: The bony orbits are intact. Orbital contents are normal as visualized. Sinuses and mastoids: There is trace mucosal thickening within the left maxillary antrum. The remaining paranasal sinuses are clear. The mastoid air cells are well pneumatized. IMPRESSION: 1. There is no hemorrhage, mass effect, or evidence of acute territorial ischemia by CT criteria. 2. Unremarkable CT angiogram of the brain. 3. Unremarkable CT angiogram of the neck. Neck CTA 12/24/22 14:22 CT ANGIOGRAM OF THE BRAIN COMBO; CT ANGIOGRAM OF THE NECK CLINICAL HISTORY: Right upper extremity weakness. COMPARISON STUDY: No priors. TECHNIQUE: Unenhanced axial CT scan of the brain is performed. Subsequently, following the IV administration of 100 of Optiray 320, CT angiogram of the head and neck was performed from the aortic arch to the vertex. Images are reviewed in the axial, sagittal, and coronal planes. 3-D MIPS images are created and assessed. IV contrast was administered without complication. All measurements were calculated based on NASCET criteria. A dose lowering technique was utilized adhering to the principles of ALARA. CT DOSE: 1203.63 mGy.cm FINDINGS: Brain parenchyma: The brain parenchyma is normal in appearance. There is no hemorrhage, mass effect, or evidence of acute territorial ischemia by CT criteria. There is no evidence of enhancing mass lesion on the angiogram phase images. The ventricles, sulci, and cisterns are normal in configuration. Villalba- white matter differentiation is preserved. No extra-axial fluid collection is seen. Thoracic aorta: Visualized portions of the thoracic aorta are normal in caliber. The aortic arch demonstrates standard 3-vessel anatomy. Right carotid arterial system: The right common carotid artery is widely patent, as are the right internal and external carotid arteries. Left carotid arterial system: The left common carotid artery is widely patent, as is the left internal and external carotid arteries. Calcified plaque is noted in the carotid bulb. Vertebral arteries: The vertebral arteries are widely patent bilaterally and codominant. Subclavian arteries: Widely patent bilaterally. Intracranial vasculature: There is atherosclerotic calcification of the cavernous carotid and vertebral arteries. The internal carotid arteries are patent at the skull base, as are the anterior and middle cerebral arteries bilaterally. The vertebrobasilar system and posterior cerebral arteries are widely patent. The vertebral arteries are codominant. There is a large right posterior communicating artery. There is no aneurysm, high-grade stenosis, or focal vessel cut off seen throughout the intracranial circulation. Jugular veins: Patent bilaterally. Dural sinuses: Patent. Lung apices: Partially visualized upper lobe lung parenchyma appears clear. Soft tissues: The visualized pharyngeal soft tissues are normal in appearance noting angiographic phase technique. The oropharyngeal airway appears widely patent. The salivary and thyroid glands are normal in appearance. No cervical lymphadenopathy is seen. Skeletal structures: The calvarium appears intact. The cervical spine is maintained noting mild spondylosis. Orbits: The bony orbits are intact. Orbital contents are normal as visualized. Sinuses and mastoids: There is trace mucosal thickening within the left maxillary antrum. The remaining paranasal sinuses are clear. The mastoid air cells are well pneumatized. IMPRESSION: 1. There is no hemorrhage, mass effect, or evidence of acute territorial ischemia by CT criteria. 2. Unremarkable CT angiogram of the brain. 3. Unremarkable CT angiogram of the neck. Brain MRI 12/24/22 18:26 Exam(s): MRI HEAD Without Contrast EXAM: MR Head Without Intravenous Contrast CLINICAL HISTORY: Reason for exam: R hand weakness, 4-5th finger inability to move. TECHNIQUE: Magnetic resonance images of the head/brain without intravenous contrast in multiple planes. COMPARISON: No relevant prior studies available. FINDINGS: Brain: Unremarkable. No mass. No hemorrhage. No acute infarct. Ventricles: Unremarkable. No ventriculomegaly. Bones/joints: Unremarkable. Sinuses: Unremarkable as visualized. No acute sinusitis. Mastoid air cells: Unremarkable as visualized. No mastoid effusion. Orbits: Unremarkable as visualized. IMPRESSION: Normal head/brain MRI. 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 TECHNIQUE: Magnetic resonance images of the cervical spine without intravenous contrast in multiple planes. COMPARISON: No relevant prior studies available. FINDINGS: No fracture. Hemangioma within the T1 vertebral body. Minimal retrolisthesis at C3-4, C4-5, and C5-6. Multilevel disc desiccation with uncovertebral and facet hypertrophy. Cord signal is normal. No epidural collection. Paraspinous soft tissues are unremarkable. C2-C3: No spinal canal or foraminal stenosis. C3-C4: Trace diffuse disc bulge and facet arthropathy. Minimal effacement of the ventral cord. Mild foraminal stenosis on the left. No significant stenosis on the right. C4-C5: Diffuse disc bulge. Facet arthropathy. Minimal canal stenosis. Moderate bilateral foraminal stenosis. C5-C6: Diffuse disc bulge with uncovertebral and facet hypertrophy. Mild canal stenosis. Moderate bilateral foraminal stenosis. C6-C7: Uncovertebral and facet hypertrophy. No canal stenosis. Mild foraminal stenosis on the left. No stenosis on the right. C7-T1: No spinal canal or foraminal stenosis. IMPRESSION: Degenerative spondylosis as described. Outside records reviewed: Outpatient EKG dated July 2022: Normal sinus rhythm with first-degree AV block, left axis deviation, possible old inferior infarct Exercise stress echo report reviewed dated March 2021: Interpretation Summary The examination is limited quality but adequate for evaluation of the referral indication. The stress echo is negative for inducible ischemia. Frequent PVCs were noted with stress. Exercise capacity is below average . Resting Study: The qualitative LV ejection fraction is 55-59% (normal). The LV wall thickness is mildly increased (concentric). The left ventricular diastolic function is mildly abnormal (grade I). The right ventricular cavity is mildly dilated. The right ventricular systolic function is normal as assessed by tricuspid annular plane systolic excursion (TAPSE) (normal >1.7 cm). Trace tricuspid regurgitation. There is no evidence of pulmonary hypertension. Compared to prior study of 03/19/2019, there is no significant change.
[2022-12-25] MEDS: INSULIN ASPART PER UNIT CHARGE SC SCH ×2 (08:50→11:41)
[2022-12-25] MEDS ORDERED: ROSUVASTATIN CALCIUM 10 MG TAB PO SCH (09:00)
[2022-12-25] MEDS ORDERED: ASPIRIN 81 MG ECTAB PO SCH (09:00)
[2022-12-25] MEDS ORDERED: EMPAGLIFLOZIN 25 MG TAB PO SCH (09:00)
[2022-12-25] MEDS ORDERED: lisinopril 10 MG TAB PO SCH (09:00)
[2022-12-25] MEDS ORDERED: METOPROLOL SUCC 25MG EXT REL TAB PO SCH (09:00)
[2022-12-25] MEDS ORDERED: PANTOprazole 40 MG TAB PO SCH ×2 (09:00→21:00)
[2022-12-25] MEDS ORDERED: allopurinoL 300 MG TAB PO SCH (09:00)
--- NOTE | 2022-12-25 10:20 | Neurology Consultation ---
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 He does not have associated sensory loss, which probably makes posterior interosseous neuropathy more likely. There is no evidence of a central injury on MRI of the brain or cervical spine. No stroke or compressive myelopathy. Lack of severe proximal pain probably makes neuralgic amyotrophy/brachial neuritis unlikely as well. Further, lack of both sensory symptoms and neck pain makes cervical radiculopathy unlikely, in addition to the relatively unrevealing MRI evaluation. Furthermore, his clinical presentation and examination is not consistent with motor neuron disease or ALS. It would not be unreasonable to check a Lyme antibody test with reflex to Western blot, ESR, CRP, ABDIRIZAK screen with reflex titer, ANCA, rheumatoid factor. However, I think the likelihood of Lyme associated neuritis or autoimmune vasculitis is low. An outpatient EMG/nerve conduction study should be completed. In speaking with the patient, it sounds like he began to develop weakness of the right fourth and fifth digits several weeks ago, but with acute worsening recently. Therefore, there may be some diagnostic yield in getting the EMG at this time, rather than waiting a few more weeks. We do not perform EMG evaluations in the hospital. This test could be done with the local [facility] neurology group as discussed previously. An EMG could also be completed with Dr. Albert with [facility] neurology as well. Please call with any questions. History of Present Illness Reason for Consultation: Right hand weakness, peripheral nerve palsy? Requesting Physician: Manisha Dubose PA-C Attending Physician: Wong Pineda MD History of Present Illness The patient is a 62-year-old male with a history of progressive weakness of the right hand which began about 1 month ago, primarily difficulty moving the right fourth and fifth digits, without associated numbness or sensory disturbance. He has a ganglion cyst on the dorsum of the right wrist and has been seen by outpatient [facility] orthopedics. His weakness significantly worsened over the past 2 days prompting some concern for stroke or other acute neurologic process. He was therefore referred to the emergency department for further evaluation. He does endorse some mild elbow discomfort, no shoulder or neck pain. He denies headache, vision disturbance, vertigo, or change in speech. He denies any fever, chills, or significant systemic illness recently. He denies any trauma. He does have a history of gout for which she is prescribed allopurinol and indom ethacin. Past medical history also notable for diabetes mellitus, hypertension, and dyslipidemia. He is on daily low-dose aspirin, Crestor, several antihypertensives, as well as medication for his diabetes. He is afebrile. Patient's blood pressure has been intermittently modestly elevated. A CBC was unremarkable, metabolic panel has revealed elevated blood glucose, hemoglobin A1c was 6.8, he does have an elevation in troponin, lipid panel is within normal limits. An electrocardiogram completed today revealed a sinus rhythm with first-degree AV block, left axis deviation, inferior infarct. An electrocardiogram reveals no regional wall motion abnormalities, left ventricular systolic function normal, EF 55 to 60%, grade 1 diastolic dysfunction, no significant valvular disease, left atrial size normal, intra- atrial septum intact. CT angiography of the head and neck unremarkable. No significant vascular lesion, no stenosis, dissection, aneurysm, or large vessel occlusion. MRI of the brain unremarkable, no evidence of acute or subacute infarct. No significant parenchymal abnormality. Cervical spine MRI reveals multilevel degenerative spondylosis without significant central canal or foraminal stenosis at any level. He does have moderate bilateral stenosis at C4-5 and C5-6 and mild leftward stenosis at C6-7. Spinal cord signal normal. I reviewed the images as well as the radiologist's interpretation of the above tests. Allergies Allergy/AdvReac Type Severity Reaction Status Date / Time poison rip extract Allergy Blister Verified 12/24/22 22:10 Home Medications Medication Instructions Recorded Confirmed Type allopurinol 300 mg tablet 300 mg PO DAILY 12/24/22 12/24/22 History aspirin 81 mg chewable tablet 81 mg PO DAILY 12/24/22 12/24/22 History empagliflozin 25 mg tablet 25 mg PO DAILY 12/24/22 12/24/22 History (Jardiance) indomethacin 25 mg capsule 25 mg PO BID PRN gout 12/24/22 12/24/22 History levothyroxine 50 mcg tablet 50 mcg PO DAILY 12/24/22 12/24/22 History lisinopril 10 mg tablet 10 mg PO QAM 12/24/22 12/24/22 History metformin 500 mg tablet,extended 1,000 mg PO BID 12/24/22 12/24/22 History release 24 hr methylprednisolone 4 mg tablets in 4 mg PO UD 12/24/22 12/24/22 History a dose pack metoprolol succinate 25 mg 25 mg PO QAM 12/24/22 12/24/22 History tablet,extended release 24 hr omeprazole 20 mg capsule,delayed 20 mg PO DAILY 12/24/22 12/24/22 History release rosuvastatin 10 mg tablet 10 mg PO DAILY 12/24/22 12/24/22 History sitagliptin phosphate 100 mg tablet 100 mg PO DAILY 12/24/22 12/24/22 History Patient History Medical History (Updated 12/25/22 @ 10:37 by Mega Shine MD) Diabetes Gout HLD (hyperlipidemia) Hypertension Obesity (BMI 30-39.9) Surgical History (Updated 12/24/22 @ 20:11 by Manisha Dubose PA-C) Hx of colonoscopy Family History (Updated 12/24/22 @ 18:28 by Manisha Dubose PA-C) Other Heart disease Hypertension Stroke Social History Smoking Status: Never smoker Hx Alcohol Use: No Hx Substance Use: No Preferred Language: Danish Communication Ability: Effective Collar Turner Operator Required: No Beliefs That Will Affect Care: None Current Living Situation: Alone Other Information That Helps Us Care for You: No Feels Safe at Home: Yes Safety Concerns: Feels Safe At This Time Assistive Devices: Glasses Review of Systems Constitutional: no fever and no chills Eyes: no blind spots and no diplopia Ear, Nose, Mouth, Throat: no ear pain and no hearing loss Respiratory: no cough and no dyspnea Cardiovascular: no chest pain and no palpitations Gastrointestinal: no nausea and no vomiting Genitourinary: no dysuria or no urinary incontinence Musculoskeletal: no neck pain and no myalgia Integumentary: no rash and no lesions Neurologic: as per Subjective / HPI Psychiatric: no depression and no anxiety Hematologic / Lymphatic: no easy bleeding and no easy bruising Exam (Neuro) Constitutional: well developed and well nourished; no acute distress Eyes: normal visual webb by confrontation, PERRL and EOM intact bilaterally Cardiovascular: Vessels: no carotid bruit Neurologic: Oriented to:: Person, Place and Time Memory: Short Term Intact and Remote Intact Attention: Span Intact and Concentration Intact Speech Fluency: negative Dysarthria or Dysfluency Speech Aphasia: Aphasia Fund of Knowledge: Current Events, Past History and Vocabulary Cranial Nerves: Normal II, III, IV, , V, VII, VIII, IX, X, XI and XII Motor Strength: Normal Lower Extremities; negative Normal Upper Extremities (There is weakness for the right upper extremity as described below) Motor Tone: Normal Lower Extremities and Normal Upper Extremities Muscle Bulk/Involuntary Movements: No Involuntary Movements; negative Muscle Atrophy Sensation: Light Touch Intact, Pain/Temperature Intact, Vibration Intact and Proprioception Intact Coordination: Normal; negative Limited Balance, Finger-Nose Abnormal or Heel- Valle Abnormal Deep Tendon Reflexes: Rt Triceps: 2+, Lt Triceps: 2+, Rt Biceps: 2+, Lt Biceps: 2+, Rt Brachioradialis: 2+, Lt Brachioradialis: 2+, Rt Patellar: 2+, Lt Patellar: 2+, Rt Ankle: 1+ and Lt Ankle: 1+ Gait: Normal Station and Gait Details: There is weakness of flexor and extensor strength for the right fourth and fifth digits, there is weakness for finger abduction for the right hand, wrist extensor strength seems to be intact, there is supination weakness for the right forearm, biceps strength intact, there is mild triceps weakness. Direct strength testing does elicit a moderate degree of discomfort in the wrist and elbow. There is crepitus of the wrist and elbow with direct strength testing as well. There is a deformity along the dorsum of the right wrist corresponding to a relatively large ganglion cyst. Results & Data Vital Signs (Past 12 Hours) Vital Signs Temp Pulse Pulse Pulse Resp BP Pulse Ox 12/25/22 07:40 36.8 C 60 18 146/82 H 95 12/25/22 03:41 36.7 C 62 18 144/79 H 94 12/25/22 00:00 61 12/25/22 00:07 37.0 C 69 18 139/83 96 O2 Del Method 12/25/22 07:40 Room Air 12/25/22 03:41 Room Air 12/25/22 00:00 12/25/22 00:07 Room Air PG Care Time/CCT Total # of Minutes Spent Total Time Spent with Patient: 80 minutes spent with chart review, direct review of imaging, labs, medical tests, outpatient [facility] sports medicine evaluation, direct interview and examination of the patient, and medical documentation. Coding Level of Care Code 27946 INT INP/OBS CARE Diagnoses Radial nerve dysfunction G56.30 Posterior interosseous nerve syndrome G56.30
--- NOTE | 2022-12-25 13:13 | Electrocardiogram Report ---
Test Reason : Blood Pressure : / mmHG Vent. Rate : 064 BPM Atrial Rate : 064 BPM P-R Int : 246 ms QRS Dur : 084 ms QT Int : 396 ms P-R-T Axes : 055 -58 038 degrees QTc Int : 408 ms Sinus rhythm with 1st degree A-V block Left axis deviation Inferior infarct (cited on or before 24-DEC-2022) Abnormal ECG When compared with ECG of 24-DEC-2022 16:22, No significant change Confirmed by Edil Williamson ([id number]) on 12/25/2022 1:12:50 PM Referred By: REFERRED SELF Confirmed By:Edil Williamson
--- NOTE | 2022-12-25 13:20 | Discharge Summary ---
Date of Service December 25, 2022 Admission HPI Per Admitting Provider This is a 62-year-old male with PMHx of HTN, HLD, gout, DM type II, benign neoplasm of the colon, obesity, and history of right wrist pain with arthritis. Patient has previously been seen by Dr. Michi Winter for right wrist pain, and already takes allopurinol and indomethacin on an as-needed basis for gout flares. In the beginning of November he noticed a bump on the dorsum of his wrist and was diagnosed as a ganglion cyst by his PCP. Yesterday on 12/23 he acutely lost the ability to extend his fourth and fifth fingers on the right hand. Denies any known trauma. Denies any significant pain. He admits to having ti ngling on the dorsum of the wrist, but no numbness in the fingers. Neurology recommended waiting 3 to 4 weeks for an EMG as today could potentially be normal despite abnormal exam. Due to acute concern for symptoms with inability to extend fingers, he was sent from Dr. Patria Quiroz at sports medicine/orthopedic office to the hospital for CVA rule out for CT of the head. Pt reports pain in his right hand has gotten so bad that he is writing his left, as well as is learning to use utensils with the left hand. Pt reports prior to today, pt had no issues moving his right wrist or his fingers. He has had intermittent swelling which has caused pain, but today there is no swelling. He basically woke up like this, and last time known well was last night prior to going to sleep. While here in the ER, patient was found to have an elevated troponin of 160--> 180 on recheck. Patient denies any cardiac symptoms including chest pain, shortness of breath, flutter, palpitation, lightheadedness or dizziness. Family Hx: reports multiple family members with cardiac disease, [place] Admission Exam Per Admitting Provider General: awake, alert, no apparent distress, obese with BMI of 31.2 Head: Normocephalic, atraumatic ENT: PERRL, EOMI, no pharyngeal exudate, mucous membranes moist Chest: Clear to auscultation, on room air, no adventitious breath sounds Cardiac: Regular rate and rhythm, no murmur, no JVD, normal peripheral pulses, good capillary refill Abdominal: NABS x 4 quadrants, soft, nondistended, nontender to palpation, no rebound or guarding Extremities: Normal inspection, no peripheral edema or erythema, calfs nontender to palpation Psych: Normal mood and affect Neuro: AAO x 3, strength intact bilaterally and rated 5/5, pt has difficulty pronating and internally rotating his right arm, cannot extend right wrist or extend or flex 4th or 5th finger on the right, otherwise no motor deficits, speech is clear, no peripheral sensory deficits Principal Diagnosis Right hand weakness likely due to radial nerve dysfunction/posterior interosseous nerve syndrome Elevated high-sensitivity troponin due to demand ischemia. Discharge Exam General: awake, alert, no apparent distress, Head: Normocephalic, atraumatic ENT: PERRL, EOMI, no pharyngeal exudate, mucous membranes moist Chest: Clear to auscultation, on room air, no adventitious breath sounds Cardiac: Regular rate and rhythm, no murmur, no JVD, normal peripheral pulses, good capillary refill Abdominal: NABS x 4 quadrants, soft, nondistended, nontender to palpation, no rebound or guarding Extremities: Normal inspection, no peripheral edema or erythema, calfs nontender to palpation Psych: Normal mood and affect Neuro: Alert oriented x3 weakness of flexor and extensor strength of the right fourth and fifth finger. Weakness of finger abduction of the right hand. Has large ganglion cyst on dorsal aspect of right hand. Discharge Data Allergies Allergy/AdvReac Type Severity Reaction Status Date / Time poison rip extract Allergy Blister Verified 12/24/22 22:10 Consultations 12/24/22 17:28 ED Decision to Admit Stat 12/24/22 18:37 Consult Neurology Routine 12/24/22 21:35 Consult Cardiology Routine Ordered Studies 12/24/22 14:22 CTA head wo/w [CT angio head wo/w] Stat CTA neck with con [CT angio neck with con] Stat 12/24/22 18:26 MRI Brain [MR brain wo con] Stat 12/24/22 20:19 MRI Cervical [MR cervical spine wo con] Stat Hospital Course (1) Right hand weakness: (2) Radial nerve dysfunction: (3) Posterior interosseous nerve syndrome: (4) Ganglion, right wrist: (5) Elevated troponin: (6) HLD (hyperlipidemia): (7) Hypertension: (8) Diabetes: Plan Patient is a 62-year-old male with past medical history of hypertension, hyperlipidemia, type 2 diabetes mellitus who presented to the hospital with weakness of right fourth and fifth finger. He was seen by sports medicine doctor who recommended him to go to the hospital to rule out CVA. MRI brain was done which did not show any stroke. MRI cervical was fine also did not reveal any cervical radiculopathy. He was evaluated by neurology while inpatient. The likely cause for the hand weakness is radial nerve dysfunction or posterior interosseous nerve syndrome. Neurology recommended to obtain EMG/nerve condu ction test. Also, recommended to check for Lyme antibody test, ESR, CRP, ABDIRIZAK, ANCA and rheumatoid factor. Discussed with patient; patient prefers to do work- up as outpatient. Outpatient follow-up scheduled with primary care doctor. During the evaluation in the ED, patient was found to elevated high-sensitivity troponin. Patient did not have any chest pain, shortness of breath or palpitation. Cardiology was consulted during the hospitalization. Echocardiogram was done which showed no regional wall motion abnormalities, EF of 55 to 60% with no significant valvular heart disease. Recommended outpatient stress test. Total Time Total Time Spent Total Time Spent (In Minutes): 45 Total Time Includes: Examination of the Patient, Discharge Planning, Medication Reconciliation, Communication With Other Providers and Other Discharge Plan Discharge Items Patient Disposition: Home - Self-Care Reason For Visit: ELEVATED TROP, R/O CVA, RIGHT HAND ABNORMALITY Discharge Diagnosis: Right hand weakness likely due to radial and dysfunction/posterior interosseous nerve syndrome Elevated high-sensitivity troponin likely due to demand ischemia Activity: Resume your previous activity Non-emergency contact: Primary Care Provider Call non-emergency contact if: you have any medication questions and your sympto ms worsen Follow-up/Referrals: Juan Guzman MD [Primary Care Provider] - (Date & Time 12/31/2022 1:40 PM Provider Juan Guzman MD Department [facility] ) Diet: Regular Addtl Attending Provider Instructions: You were admitted to the hospital with right hand weakness. You underwent MRI brain which ruled out stroke. He also underwent MRI of the cervical spine which did not show any cervical radiculopathy. Your evaluated by Dr. Shine from neurology. He recommends outpatient EMG/nerve conduction test. Also, recommends Lyme antibody test, ESR, CRP, ABDIRIZAK, ANCA and rheumatoid factor. You can have this blood test done as outpatient. During your lab work, you are found to have elevated troponin level. Cardiology evaluated you during the hospitalization; they recommend outpatient stress test. An appointment with your primary care doctor is scheduled for next week. Pending Studies at Discharge: No Stand-Alone Forms: My [facility], Smoking Cessation Medications and DC Order Prescriptions: Continued levothyroxine 50 mcg tablet 50 mcg PO DAILY lisinopril 10 mg tablet 10 mg PO QAM omeprazole 20 mg capsule,delayed release(DR/EC) 20 mg PO DAILY aspirin 81 mg Tablet,Chewable 81 mg PO DAILY allopurinol 300 mg tablet 300 mg PO DAILY metoprolol succinate 25 mg tablet extended release 24 hr 25 mg PO QAM methylprednisolone 4 mg tablets,dose pack 4 mg PO UD metformin 500 mg tablet extended release 24 hr 1,000 mg PO BID rosuvastatin 10 mg tablet 10 mg PO DAILY sitagliptin phosphate 100 mg Tablet 100 mg PO DAILY Jardiance 25 mg tablet 25 mg PO DAILY Discontinued indomethacin 25 mg capsule 25 mg PO BID PRN (Reason: gout ) Discharge Orders: Discharge Order (Routine); Ordered 12/25/22 Ordered By: Wong Cesar/Other Patient Handouts: Managing Type 2 Diabetes Admission Data Admit Date/Time: 12/24/22 17:51 Attending Provider: Wong Pineda Admit Provider: Amena Silva Primary Care Provider: Juan Guzman Other Providers: Mega Shine ; Amena Silva ; Norbert Rich ; Wong Pineda
--- NOTE | 2022-12-25 13:59 | Electrocardiogram Report ---
Test Reason : Blood Pressure : / mmHG Vent. Rate : 060 BPM Atrial Rate : 060 BPM P-R Int : 242 ms QRS Dur : 088 ms QT Int : 408 ms P-R-T Axes : 048 -46 010 degrees QTc Int : 408 ms Sinus rhythm with 1st degree A-V block Left axis deviation Inferior infarct (cited on or before 24-DEC-2022) Abnormal ECG When compared with ECG of 24-DEC-2022 16:49, (unconfirmed) No significant change was found Confirmed by Edil Williamson ([id number]) on 12/25/2022 1:59:26 PM Referred By: REFERRED SELF Confirmed By:Edil Williamson
== END 2022-12-25 13:37 | disposition home or self-care (01) | DRG 74 ==
LOC: ED 13:33 → SUATTDRO 17:51 → 2N 17:51